=== PATIENT | female | born 1940 | race Caucasian/White ===

== ENCOUNTER 2020-03-12 09:14 | Emergency (ER) | payer MEDICARE ==
[~2020-03-12 09:14] MED LIST: KEFLEX500 MG PO; NORCO 5-325 TA1 EACH PO
[2020-03-12] MEDS ORDERED: NAPROXEN500 MG PO (10:45)
== END 2020-03-12 10:35 | disposition home or self-care (01) ==
LOC: FER 09:14
DX: M25.461 Effusion, right knee (principal); G89.29 Other chronic pain
CPT/HCPCS: 73560

== ENCOUNTER 2020-06-21 01:29 | Emergency (ER) | payer MEDICARE ==
[~2020-06-21 01:29] MED LIST changes: +NAPROXEN500 MG PO
[2020-06-21 02:11] LABS: BASOPHIL 0.4 % (0-2); EOSINOPHIL 2.7 % (0-7); HCT 37.7 % (37.0-47.0); HGB 11.1 g/dl (12.5-16.0); MCHC 29.4 g/dL (32.0-36.0); MCV 71.4 fL (78.0-100.0); MONOCYTE 13.5 % (0-12); MPV 10.6 fL (6.0-9.5); NEUTROPHIL 53.4 % (41-80); NRBC 0; PLT 261 K/uL (150-400); RBC 5.28 M/uL (4.20-5.40); RDW 15.9 % (11.5-14.0); WBC 5.1 K/uL (4.0-10.5)
[2020-06-21 02:21] LABS: INR 1.17 (0.9-1.2); PROTHROMBIN TIME 14.1 SECONDS (11.4-13.6); PTT 26.3 SECONDS (22.2-34.7)
[2020-06-21 02:29] LABS: ALBUMIN 3.4 g/dL (3.4-5.0); BILIRUBIN - TOTAL 0.3 mg/dL (0.2-1.0); CREATININE 0.63 mg/dL (0.51-0.95); POTASSIUM 3.7 mmol/L (3.5-5.1); TOTAL PROTEIN 8.4 g/dL (6.4-8.2)
[2020-06-21 02:37] LABS: CKMB 0.8 ng/mL (0.0-3.6)
[2020-06-21] MEDS ORDERED: NORCO 5-325 TA1 EACH PO (03:34)
[2020-06-21] MEDS ORDERED: NAPROXEN500 MG PO (03:34)
== END 2020-06-21 04:00 | disposition home or self-care (01) ==
LOC: FER 01:29
PROVIDERS: Emergency Medicine Emergency Medical Services
DX: S20.213A Contusion of bilateral front wall of thorax, initial encounter (principal); M54.9 Dorsalgia, unspecified; M79.632 Pain in left forearm; M79.631 Pain in right forearm; I45.10 Unspecified right bundle-branch block; K44.9 Diaphragmatic hernia without obstruction or gangrene; E11.9 Type 2 diabetes mellitus without complications; W19.XXXA Unspecified fall, initial encounter; Y92.009 Unspecified place in unspecified non-institutional (private) residence as the place of occurrence of the external cause
CPT/HCPCS: 36415; 70450; 71250; 72125; 73060; 73090; 80053; 82550; 82553; 84484; 85025; 85610; 85730; 93005; 94010; J1885; J2270; J2405; J2930